=== PATIENT | female | born 1980 | race Caucasian/White ===

== ENCOUNTER 2020-04-16 04:21 | Inpatient (IN) | payer OTHER ==
[2020-04-15 11:08] VITALS: BMI 26.9
--- NOTE | 2020-04-16 11:06 | HP ---
History & Physical Update - History History: No Change (H&P reviwed ,no changes , for supracervical abdominal hysterectomy) - Physical Physical: No Change - Assessment Assessment: No Change - Plan Plan: No Change
[2020-04-16] MEDS ORDERED: BUPIVACAINE LIPOSOME/PF (EXPAREL) 266 MG/20 ML VIAL ONE (13:42)
[2020-04-16] MEDS ORDERED: MIDAZOLAM HCL 2 MG/2 ML SINGLE DOSE VIAL ONE ×2 (14:28)
[2020-04-16] MEDS ORDERED: ROCURONIUM BROMIDE 50 MG/5 ML SYRINGE ONE (14:50)
[2020-04-16] MEDS ORDERED: PROPOFOL 20 ML ONE (15:16)
[2020-04-16] MEDS ORDERED: ceFAZolin SODIUM 1 GM VIAL IVPB ONE (15:30)
[2020-04-16] MEDS ORDERED: ceFAZolin SODIUM 1 GM VIAL ONE (15:32)
[2020-04-16] MEDS ORDERED: DEXAMETHASONE SOD PHOSPHATE 4 MG/1 ML VIAL ONE (15:38)
[2020-04-16] MEDS ORDERED: SEVOFLURANE 250 ML BTL ONE (16:30)
[2020-04-16] MEDS ORDERED: NEOSTIGMINE METHYLSULFATE 0.5 MG/ML - 10 ML MDV ONE (16:31)
[2020-04-16] MEDS ORDERED: ONDANSETRON 4 MG/2 ML VIAL IVPUSH PRN ×2 (16:41→17:19)
[2020-04-16] MEDS ORDERED: LACTATED RINGERS SOLUTION 1,000 ML IV SCH (16:45)
[2020-04-16] MEDS ORDERED: HYDROmorphone *PCA* 10MG/50ML DISP.SYRIN PCA SCH (16:45)
[2020-04-16] MEDS ORDERED: HYDROmorphone *PCA* 10MG/50ML DISP.SYRIN ONE (17:12)
[2020-04-16] MEDS ORDERED: IBUPROFEN 800 MG/8 ML IJ IVPB PRN (17:19)
[2020-04-16] MEDS ORDERED: IBUPROFEN 600 MG TABLET (FP) PO PRN (17:19)
[2020-04-16] MEDS ORDERED: oxyCODONE HCL 5 MG TABLET PO PRN (17:19)
[2020-04-16] MEDS ORDERED: SIMETHICONE 80 MG TAB.CHEW (FP) PO PRN (17:23)
[2020-04-16] MEDS ORDERED: BISACODYL 5 MG TABLET.DR (FP) PO PRN (17:24)
[2020-04-16] MEDS: ELECTROLYTE-148 SOLN 1,000 ML IV SCH (17:40)
--- NOTE | 2020-04-16 17:51 | OP ---
Operative Note - Note: Operative Date: 04/16/20 Pre-Operative Diagnosis: pelvic pain, menometrorrhagia , fibroid uterus, anemia Operation: supracervical abdominal hysterectomy, bilateral salpingectomy Findings: large uterus, fibroid and adenomyosis Surgeon: Andrew Alvarado Director Of Field Service: Kvng Fernandez Anesthesiologist/SURVEILLANCE ANALYST: Sebastián Mendoza Anesthesia: General Specimens Removed: uterus, both tubes Estimated Blood Loss (mls): 150 Drains & Tubes with Location: lomas Drains, Volume Out (mls): 200 Blood Volume Replaced (mls): 0 Fluid Volume Replaced (mls): 800 Operative Report Dictated: Yes
[2020-04-17] MEDS: ELECTROLYTE-148 SOLN 1,000 ML IV SCH ×2 (01:46→10:35)
[2020-04-17] MEDS ORDERED: PCA PUMP NR ONE (08:25)
[2020-04-17 08:44] LABS: HEMATOCRIT 27.6 % (32.4-45.2); HEMOGLOBIN 8.4 GM/dL (10.7-15.3); MCHC 30.4 g/dl (32.0-36.0); MEAN CELL VOLUME 64.7 fl (80-96); MEAN PLT VOLUME 9.8 fl (7.5-11.1); PLATELET COUNT 265 K/MM3 (134-434); RBC 4.26 M/mm3 (3.60-5.2); RDW 18.2 % (11.6-15.6); WHITE BLOOD COUNT 10.8 K/mm3 (4.0-10.0)
[2020-04-17 08:46] LABS: MCH 19.7 pg (25.7-33.7)
--- NOTE | 2020-04-17 09:12 | OP ---
DATE OF OPERATION: 04/16/2020 PREOPERATIVE DIAGNOSES: Menometrorrhagia, pelvic pain, fibroid uterus and anemia. POSTOPERATIVE DIAGNOSES: Menometrorrhagia, pelvic pain, fibroid uterus and anemia. PROCEDURE: Supracervical abdominal hysterectomy and bilateral salpingectomy. SURGEON: Andrew Alvarado MD CLOTH FINISHING RANGE TENDER: BRANDI Johnson ANESTHESIA: General. ESTIMATED BLOOD LOSS: 150 mL. FINDINGS: A large uterus with fibroid and adenomyosis. OPERATION: Patient was taken to operating room. Under adequate general anesthesia abdomen and perineum were prepped and draped. Pfannenstiel abdominal skin incision was made over previous incision. Abdominal wall was cut layer by layer until peritoneum was exposed and incised. Upon entering the abdominal cavity upper abdomen was checked, was normal. Bowels were packed away and then both cornual regions of the uterus grasped with 2 clamp Prerna. Then round ligament was identified bilaterally. Round ligaments were cauterized with LigaSure bipolar cautery and cut, and then anterior leaf of broad ligament was opened. Bladder was pushed down. Then, a hole was made in broad ligament. Then, uteroovarian ligament was grasped with a Luz Marina clamp and severed from the uterus bilaterally; and the pedicles were tied with double tie of 2-0 Vicryl ties. Then, pedicles were checked. No bleeding was seen. Bladder was further pushed down. Uterine artery was identified bilaterally, clamped with Luz Marina clamp, cut and the clamp replaced with 0 Vicryl suture bilaterally. Then, paracervical area was grasped with Luz Marina clamp, cut and the clamp replaced with 0 Vicryl suture bilaterally. At this time, the uterus was removed above the cervix; and then cervix was sutured with interrupted suture of 0 Vicryl. Hemostasis was established. No active bleeding was seen. All the pedicles were checked, normal. Pelvic cavity several times irrigated. Then, reperitonealization of the pelvic floor was done with continuous suture of 2-0 Vicryl. Urine was clear. All the lap pad, sponge and instrument counts were correct. Peritoneum was closed with 0 Vicryl continuous suture. Muscles were brought together with interrupted suture of 0 Vicryl. Fascia was closed with 0 Vicryl continuous suture, subcutaneous fat interrupted suture of 0 Vicryl and the skin was closed with 3-0 Vicryl continuous subcuticular suture. Patient tolerated procedure well, left the OR in good condition. Swathi [id number]
[2020-04-17] MEDS ORDERED: ENOXAPARIN NA (PORCINE) 40 MG/0.4 ML DISP.SYRIN SQ SCH (10:00)
--- NOTE | 2020-04-17 10:42 | PN ---
Progress Note (short form) - Note Progress Note: pod1 ,doing well, has mild suprapubic pain, no vaginal bleeding, lomas cath clear urine Last Vital Signs Temp Pulse Resp BP Pulse Ox 98.6 F 77 18 148/78 98 04/17/20 09:00 04/17/20 09:00 04/17/20 09:00 04/17/20 09:00 04/17/20 09:00 abdomen soft, no distension, no cva , BS present no calf tenderness impression pod 1 afebrile plan ambulate DVT prophylaxis advance diet pain management
--- NOTE | 2020-04-17 11:41 | PN ---
Progress Note, Physician Chief Complaint: s/p supracervical hysterectomy under general anesthesia post op day one History of Present Illness: bilateral TAP block for post op pain control, post op day one - Current Medication List Current Medications: Active Medications Bisacodyl (Dulcolax -) 10 mg PO DAILY PRN PRN Reason: CONSTIPATION Last Admin: 04/17/20 10:43 Dose: 10 mg Documented by: Enoxaparin Sodium (Lovenox -) 40 mg SQ DAILY [facility] Last Admin: 04/17/20 10:33 Dose: 40 mg Documented by: Lactated Ringer's (Lactated Ringers Solution) 1,000 mls @ 125 mls/hr IV ASDIR WALLY Parenteral Electrolytes (Plasma-Lyte 148 -) 1,000 mls @ 125 mls/hr IV ASDIR WALLY Last Admin: 04/17/20 10:35 Dose: 125 mls/hr Documented by: Ibuprofen (Caldolor Injection -) 800 mg IVPB Q6H PRN PRN Reason: Fever - If PO not effective. Last Admin: 04/17/20 10:34 Dose: 800 mg Documented by: Ibuprofen (Motrin -) 600 mg PO Q6H PRN PRN Reason: FEVER Ondansetron HCl (Zofran Injection) 4 mg IVPUSH Q6H PRN PRN Reason: NAUSEA Oxycodone HCl (Roxicodone -) 10 mg PO Q4H PRN PRN Reason: PAIN LEVEL 1-5 Simethicone (Mylicon -) 80 mg PO Q4H PRN PRN Reason: GAS - Objective Vital Signs: Vital Signs Temperature 98.6 F 04/17/20 09:00 Pulse Rate 77 04/17/20 09:00 Respiratory Rate 18 04/17/20 09:00 Blood Pressure 148/78 04/17/20 09:00 O2 Sat by Pulse Oximetry (%) 98 04/17/20 09:00 Constitutional: Yes: Well Nourished Cardiovascular: Yes: WNL Respiratory: Yes: WNL Gastrointestinal: Yes: WNL Labs: CBC, BMP 04/17/20 07:30 Assessment/Plan pain controlled, started itching when received caldolor this morning, no other complications, will order benadryl one dose but told the nurse and patient to report to primary team.
[2020-04-17 11:55] LABS: BLOOD UREA NITROGEN 6.8 mg/dL (7-18); CALCIUM 8.3 mg/dL (8.5-10.1); CREATININE 0.6 mg/dL (0.55-1.3); POTASSIUM 3.9 mmol/L (3.5-5.1)
[2020-04-17 12:08] LABS: ANISOCYTOSIS 3+; MACROCYTOSIS 0; PLATELET ESTIMATE NORMAL
[2020-04-17 19:12] VITALS: BP 134/74; PULSE 80; TEMP 98.7
--- NOTE | 2020-04-20 17:34 | PATH ---
Surgical Pathology Report Patient Name: SVETLANA TAYLOR [facility]. Rec. #: [id number] /Age/Gender: 1980 (Age: 39) / F Account: [id number] Location: [address] [place] [address]/[facility] Taken: 04/16/2020 Received: 04/17/2020 Reported: 04/20/2020 Physicians: Andrew Alvarado M.D. Specimen(s) Received UTERUS, LEFT AND RIGHT FALLOPIAN TUBES Clinical History Menorrhagia, fibroids, pelvic and perineal pain Final Diagnosis UTERUS, LEFT AND RIGHT FALLOPIAN TUBES, SUPRACERVICAL ABDOMINAL HYSTERECTOMY WITH BILATERAL SALPINGECTOMY: 567 G UTERUS. LEIOMYOMA(TA), SUBSEROSAL, SUBMUCOSAL, INTRAMURAL. PROLIFERATIVE ENDOMETRIUM. PORTION OF ENDOCERVIX WITHOUT SIGNIFICANT PATHOLOGIC FINDINGS. BILATERAL FALLOPIAN TUBES WITHOUT SIGNIFICANT PATHOLOGIC FINDINGS (FIMBRIATED END AND FULL LUMINAL SECTION). Electronically Signed Gia Whittington M.D. Gross Description Received in formalin labeled "uterus, left and right fallopian tubes" is a 567 g supracervically amputated uterus The uterus measures 10 cm from superior to inferior,11 cm from left to right and 10 cm from anterior to posterior. The serosa is mackay-pink, smooth, and show bulging subserosal nodules. The endometrial cavity is distorted, measures 5 cm in length and 4 cm from cornu to cornu. The endometrium is mackay, measuring up to 0.2 cm in thickness. The myometrium is mackay-pink and trabeculated, measuring up to 3.5 cm in thickness. The myometrium displays submucosal and multiple intramural nodules, consistent with fibroids, measuring up to 5.5 cm in greatest dimension. The cut surface of the nodules is mackay, rubbery and displays a whorled architecture. No areas of hemorrhage or necrosis are identified. Two undesignated fimbriated fallopian tube which measures 4 and 5 cm in length are identified within the same container. The outer surface of both tubes are mackay-hickey and smooth. Sectioning shows an unremarkable lumen. Communications Supervisor sections are submitted in 11 cassettes as follows: 1-cervical stump margin of resection; 2-anterior endomyometrium; 3- posterior endomyometrium; 4- anterior endomyometrium and fibroid; 5- smaller fibroids; 6-7- largest fibroid; 8-longer fallopian tube fimbria; 9-cross sections of longer fallopian tube; 10- shorter fallopian tube fimbria; 11-cross sections of shorter fallopian tube; MLSZ/04/17/2020 san04/17/2020
== END 2020-04-17 20:15 | disposition home or self-care (01) | DRG 743 ==
LOC: J2C 04:21 → J6S 20:34
PROVIDERS: ADMIT Obstetrics & Gynecology; ATTEND Obstetrics & Gynecology
PROC: 0UT70ZZ Resection of Bilateral Fallopian Tubes, Open Approach (ICD-10-PCS; 2020-04-16)
PROC: 0UT90ZL Resection of Uterus, Supracervical, Open Approach (ICD-10-PCS; principal; 2020-04-16 14:30)
DX: D25.2 Subserosal leiomyoma of uterus (principal); D25.0 Submucous leiomyoma of uterus; D25.1 Intramural leiomyoma of uterus; D64.9 Anemia, unspecified; R10.2 Pelvic and perineal pain; N92.1 Excessive and frequent menstruation with irregular cycle
CPT/HCPCS: 36415; 80048; 84703; 85027; 86850; 86900; 86901; 88309-TC; 94010; 94760